=== PATIENT | female | born 2000 | race Caucasian/White ===

== ENCOUNTER 2022-04-17 10:34 | Outpatient (CLI) | payer MEDICAID, SELFPAY ==
[2022-04-17 14:53] LABS: GC DNA Amplified* NOT DETECTED (No Detected)
[2022-04-17 15:37] LABS: Chlamydia DNA Amplified* DETECTED (No Detected)
== END 2022-04-17 10:35 | disposition home or self-care (01) ==
LOC: FRMREF 10:34
PROVIDERS: PCP Physician Assistant Medical; Visit Provider Physician Assistant Medical
DX: Z11.3 Encounter for screening for infections with a predominantly sexual mode of transmission (principal); Z78.9 Other specified health status
CPT/HCPCS: 87491; 87591